=== PATIENT | female | born 1955 | race Caucasian/White ===

== ENCOUNTER → 2016-11-20 | Outpatient (CLI) | payer OTHER ==
[~2016-11-20] MED LIST: ABCT PO; CALC-227 PO; MULT-116 PO; OMEP20TA33 PO
--- NOTE | 2016-11-20 13:01 | Diagnostic Imaging Report ---
INDICATION: Screening mammogram COMPARISON: 11/15/2015, 10/31/2013 FAMILY HISTORY: Negative Bilateral digital mammography is performed with computer assisted detection (CAD) software utilization. There are no reported clinical signs and/or symptoms of breast cancer. The breast tissue pattern is composed mostly of fat tissue. No dominant mass, suspicious microcalcification, or other significant abnormality is identified. IMPRESSION: Negative for malignancy. Follow-up mammography in one year is recommended. ACR BI-RADS Category 1: Negative Result letter will be mailed to the patient. Note: At least 10% of breast cancer is not imaged by mammography. Dictated by: Dictated on workstation # [id number]
== END ==
LOC: RAD 08:26
PROVIDERS: ATTEND Nurse Practitioner Family
DX: Z12.31 Encounter for screening mammogram for malignant neoplasm of breast (principal)